=== PATIENT | male | born 1975 | race Caucasian/White ===

== ENCOUNTER 2018-04-23 21:13 | Emergency (ER) | payer OTHER ==
[~2018-04-23] VITALS: Ht 177.8 cm; Wt 114.3 kg
[~2018-04-23 21:13] MED LIST: B12 VITAMIN SQ; GABA300C16 PO; LORA-441 PO; Omeprazole PO
[2018-04-23 21:21] VITALS: Ht 177.8 cm; Wt 114.3 kg
[2018-04-24 00:20] VITALS: BP 115/72; PULSE 78; RESP 20
[2018-04-24] MEDS ORDERED: TRAM50TA2 PO (00:27)
--- NOTE | 2018-04-24 00:29 | ERD ---
ER Documentation Chief Complaint Chief Complaint L LEG PAIN, SWELLING, BRUISING X'S 2 DAYS; DENIES TRAUMA HPI Is a 43 male with left leg pain swelling bruising for 3 days. He says this happened after he was working on some form without using kneepads on Sunday. Sunday night he started noticing bruising around his knee that extended to his mid juárez area. He denies any direct trauma. He does have some mild pain when he bends his knee past 90 degrees. He denies any numbness or tingling. He denies any cold sensation. Denies any other current issues. ROS All systems reviewed and are negative except as per history of present illness. Medications Home Meds Active Scripts Tramadol HCl (Tramadol HCl) 50 Mg Tablet, 50 MG PO Q4 PRN for PAIN, #20 TAB Prov:BRADLY IZAGUIRRE 04/24/18 Reported Medications [B12 Vitamin] No Conflict Check, SQ 07/03/13 Gabapentin* (Gabapentin*) 300 Mg Capsule, 300 MG PO HS 07/03/13 Lorazepam* (Ativan*) 0.5 Mg Tablet, 0.5 MG PO Q8 for ANXIETY 07/03/13 [Omeprazole] No Conflict Check, PO DAILY 07/03/13 Allergies Allergies: Coded Allergies: No Known Allergies (Unverified Allergy, Unknown, 08/01/13) PMhx/Soc History of Surgery: Yes (LASER EYE SURGERY LEFT EYE ) Anesthesia Reaction: No Hx Neurological Disorder: No Hx Respiratory Disorders: No Hx Cardiac Disorders: No Hx Psychiatric Problems: Yes (ANXIETY) Hx Miscellaneous Medical Probl: No Hx Alcohol Use: Yes (OCC) Hx Substance Use: No Hx Tobacco Use: Yes Smoking Status: Light tobacco smoker Physical Exam Vitals Vital Signs Date Temp Pulse Resp B/P (MAP) Pulse Ox O2 O2 Flow FiO2 Time Delivery Rate 04/24/18 78 20 115/72 99 Room Air 00:20 (86) 04/23/18 64 14 119/68 95 Room Air 23:16 (85) 04/23/18 98.2 81 18 146/82 100 21:21 (103) Physical Exam Const: No acute distress Head: Atraumatic Eyes: Normal Conjunctiva ENT: Normal External Ears, Nose and Mouth. Neck: Full range of motion. No meningismus. Resp: Clear to auscultation bilaterally Cardio: Regular rate and rhythm, no murmurs Abd: Soft, non tender, non distended. Normal bowel sounds Skin: No petechiae or rashes Back: No midline or flank tenderness Ext: No cyanosis, or edema Neur: Awake and alert Psych: Normal Mood and Affect Result Diagram: 04/23/18221404/23/182214 Results 24 hrs Laboratory Tests Test 04/23/18 22:15 White Blood Count 10.7 10^3/ul Red Blood Count 4.97 10^6/ul Hemoglobin 15.8 g/dl Hematocrit 45.7 % Mean Corpuscular Volume 92.0 fl Mean Corpuscular Hemoglobin 31.8 pg Mean Corpuscular Hemoglobin Concent 34.6 g/dl Red Cell Distribution Width 12.0 % Platelet Count 382 10^3/UL Mean Platelet Volume 10.4 fl Immature Granulocytes % 0.200 % Neutrophils % 67.7 % Lymphocytes % 23.7 % Monocytes % 6.8 % Eosinophils % 1.2 % Basophils % 0.4 % Nucleated Red Blood Cells % 0.0 /100WBC Immature Granulocytes # 0.020 10^3/ul Neutrophils # 7.2 10^3/ul Lymphocytes # 2.5 10^3/ul Monocytes # 0.7 10^3/ul Eosinophils # 0.1 10^3/ul Basophils # 0.0 10^3/ul Nucleated Red Blood Cells # 0.0 10^3/ul Prothrombin Time 12.5 Sec Prothrombin Time Ratio 1.0 INR International Normalized Ratio 0.92 Activated Partial Thromboplast Time 33.5 Sec Sodium Level 141 mmol/L Potassium Level 4.1 mmol/L Chloride Level 103 mmol/L Carbon Dioxide Level 29 mmol/L Anion Gap 9 Blood Urea Nitrogen 16 mg/dl Creatinine 0.88 mg/dl Est Glomerular Filtrat Rate mL/min > 60 mL/min Glucose Level 112 mg/dl Calcium Level 9.7 mg/dl Total Bilirubin 0.5 mg/dl Direct Bilirubin 0.00 mg/dl Indirect Bilirubin 0.5 mg/dl Aspartate Amino Transf (AST/SGOT) 33 IU/L Alanine Aminotransferase (ALT/SGPT) 30 IU/L Alkaline Phosphatase 111 IU/L Total Protein 7.9 g/dl Albumin 4.4 g/dl Globulin 3.50 g/dl Albumin/Globulin Ratio 1.25 Lipase 51 U/L Procedures/MDM Medical decision makin-year-old male with bruising. He has no hematological issues. Ultrasound shows no signs of DVT. He has good pulses bilaterally. This is more than likely a ruptured Wheatley's cyst from working on his knees. At this point I feel he is clinically stable for outpatient management. Patient be discharged home. Is to follow-up with his PCP tomorrow. He is to return for any worsening symptomology. Departure Diagnosis: Primary Impression: Injury of left leg Encounter type: initial encounter Qualified Codes: S89.92XA - Unspecified injury of left lower leg, initial encounter Condition: Stable Patient Instructions: Wheatley's Cyst BRADLY IZAGUIRRE Apr 24, 2018 00:29
== END 2018-04-24 00:34 | disposition home or self-care (01) ==
LOC: E/R 21:13
DX: S80.12XA Contusion of left lower leg, initial encounter (principal); F17.210 Nicotine dependence, cigarettes, uncomplicated; X58.XXXA Exposure to other specified factors, initial encounter; Y92.9 Unspecified place or not applicable
CPT/HCPCS: 36415; 80053; 83690; 85025; 85610; 85730; 93970; Z7502